=== PATIENT | male | born 1955 | race African-American/Black ===

== ENCOUNTER 2017-07-11 18:19 | Inpatient (IN) | payer OTHER ==
[2017-07-11] MEDS ORDERED: Magnesium 2 GM/NS 0.9% 50 ML 2 GM in Premix Bag 1 BAG IVPB SCH (18:45)
[2017-07-11 19:04] LABS: Modified Allen's Test POSITIVE; Oxyhemoglobin 95.4 % (94.0-97.0); Sodium 138 mmol/L (135-148)
[2017-07-11 19:05] LABS: PIP 16 cmH2O; Pressure Support 7 cmH2O; Spontaneous Rate 43 min; Vent YES
[2017-07-11 19:10] LABS: ALT (SGPT) 13 U/L (8-55); AST (SGOT) 49 U/L (5-34); Alkaline Phosphatase 52 U/L (40-150); Anion Gap 19 mmol/L (10-20); BUN (Urea Nitrogen) 33 mg/dL (8.4-25.7); Bilirubin, Total 3.8 mg/dL (0.2-1.2); CK (CPK) 785 U/L (30-200); Calc. Creatinine Clearance 0 mL/min (70-130); Calcium 9.7 mg/dL (7.8-10.44); Carbon Dioxide 19 mmol/L (23-31); Chloride 104 mmol/L (98-107); Estimated GFR-MDRD 14; Globulin 4.6 g/dL (2.4-3.5); Protein, Total 8.2 g/dL (5.8-8.1)
[2017-07-11 19:15] LABS: Mean Platelet Volume 11.1 fL (7.4-10.4); Red Blood Cell (RBC) Count 5.45 mill/uL (4.70-6.10)
[2017-07-11 19:17] LABS: Troponin I 0.246 ng/mL (< 0.028)
[2017-07-11 19:18] LABS: Band 13 % (5-11); Dohle Bodies SLIGHT; Metamyelocyte 21 % (0-0); Myelocyte 7 % (0-0); Neutrophil 13 % (42-75); Polychromasia SLIGHT = 2-3 cells (100X) (0-2/hpf); Reactive Lymphocytes 9 % (0-10); Toxic Granulation SLIGHT; Vacuoles SLIGHT
[2017-07-11] MEDS ORDERED: Albuterol Sulfate 2.5 mg/3 ml Neb ONE (19:42)
[2017-07-11] MEDS ORDERED: Azithromycin 500 MG in Sodium Chloride 0.9% 250 ML 250 ML IVPB SCH (19:45)
[2017-07-11] MEDS ORDERED: cefTRIAXone\\ROCEPHIN 2 GM in Sodium Chloride 0.9% 100 ML IVPB SCH (19:45)
[2017-07-11] MEDS ORDERED: Lorazepam 2 MG/ML VIAL ONE (20:08)
--- NOTE | 2017-07-11 20:09 | RAD ---
ONE VIEW CHEST: History: Shortness of breath. Dyspnea. Comparison: 07-16-15 FINDINGS: Enlarged cardiac silhouette. The pulmonary vessels are prominent. Interstitial and alveolar infiltrat es predominately in the right hemithorax. No pneumothorax or osseous abnormalities. IMPRESSION: Right lung interstitial and alveolar infiltrates. Pneumonia. Continued surveillance is recommended. POS: [facility]
[2017-07-11] MEDS ORDERED: Succinylcholine Chloride 20 MG/ML 10 ml SYRINGE FS ONE (20:21)
[2017-07-11] MEDS ORDERED: Fentanyl 20 MCG/ML 250 ML ONE (20:41)
[2017-07-11] MEDS ORDERED: Morphine 4 MG/ML VIAL ONE (20:58)
[2017-07-11] MEDS ORDERED: Propofol 1,000 MG/100 ML VIAL IV ONE ×2 (21:05→22:49)
--- NOTE | 2017-07-11 21:32 | RAD ---
CHEST ONE VIEW: Comparison: 07-11-17 at 2:15 p.m. History: Dyspnea. Altered mental status. FINDINGS: Continued worsening opacification of the right hemithorax. Interval placement of an endotracheal and nasogastric tube. Nasogastric tube terminates in the left upper quadrant, side hole is in the distal esophagus. Endotracheal tube is approximately 2.2 cm above the bob. Patchy interstitial infiltrat e in the left perihilar region. No pneumothorax. There are multiple air filled loops of small bowel. Small bowel obstruction cannot be excluded. IMPRESSION: 1. Worsening opacification left hemithorax. 2. Nasogastric tube as above. Side hole of the nasogastric tube is in the distal esophagus. Advanceme nt of the nasal gastric tube is recommended. 3. Air filled loops of small bowel. Small bowel obstruction cannot be excluded. POS: [facility]
--- NOTE | 2017-07-11 21:37 | PDOC.EVN ---
Event Note - Event Note Event Note: [id number] h&p dictated 1. Pneumonia 2. Acute respiratory failure 3. HTN 4. Metabolic acidosis 5. Abnormal cardiac enzymes plan: see orders
[2017-07-11] MEDS ORDERED: Sodium Bicarb 50 MEQ/50 ML Abboject 8.4% SYRINGE IVP SCH (21:45)
[2017-07-11 21:58] LABS: Oxyhemoglobin 93.2 % (94.0-97.0); Sodium 140 mmol/L (135-148)
[2017-07-11 22:01] LABS: Modified Allen's Test POSITIVE; Vent YES
[2017-07-11] MEDS ORDERED: Acetaminophen 650 MG Suppository ONE (22:01)
[2017-07-11 22:02] LABS: Mechanical Tidal Volume 500 ml; Mode SIMV; Pressure Support 10 cmH2O; Spontaneous Rate 21 min
[2017-07-11] MEDS ORDERED: Sodium Chloride 0.9% 1,000 ML IV SCH (22:45)
[2017-07-11] MEDS ORDERED: Sodium Bicarb 50 MEQ/50 ML Abboject 8.4% SYRINGE ONE (22:59)
[2017-07-11] MEDS ORDERED: Ondansetron HCl/PF 4 MG/2 ML Vial IVP PRN (23:07)
[2017-07-11] MEDS ORDERED: Fentanyl 20 MCG/ML 250 ML IVPB SCH (23:19)
[2017-07-11] MEDS ORDERED: Lorazepam 2 MG/ML VIAL SLOW IVP PRN (23:19)
[2017-07-11] MEDS ORDERED: DISCONTINUE PREVIOUS NARCOTIC PAIN MEDICATIONS AND BENZODIAZEPINES FS SCH (23:19)
[2017-07-11] MEDS ORDERED: Morphine 2 mg/2ml in 0.9% NaCl PF SYRINGE IVP PRN (23:30)
[2017-07-11] MEDS ORDERED: Sodium Bicarbonate 75 MEQ in Sodium Chloride 0.45% 1,000 ML IV ONE (23:30)
[2017-07-11 23:42] LABS: Oxyhemoglobin 92.7 % (94.0-97.0); Sodium 143 mmol/L (135-148)
[2017-07-11 23:44] LABS: Modified Allen's Test POSITIVE; Vent YES
[2017-07-11 23:45] LABS: Mechanical Tidal Volume 550 ml; Mode SIMV; PIP 17 cmH2O; Pressure Support 10 cmH2O
[2017-07-11] MEDS: Propofol 1,000 MG/100 ML VIAL IV PRN (23:52)
[2017-07-11 23:54] VITALS: BMI 24.3
[2017-07-12] MEDS: methylPREDNISolone Sod Succ/PF 125 MG/2 ML VIAL IVP SCH ×4 (00:22→16:37)
[2017-07-12] MEDS ORDERED: Metoprolol Tartrate 5 MG/5 ML VIAL IVP PRN (00:46)
[2017-07-12] MEDS ORDERED: Vancomycin HCl 1.25 GM in Sodium Chloride 0.9% 250 ML 250 ML IVPB SCH (01:00)
[2017-07-12] MEDS ORDERED: Acetaminophen 1,000 MG in Premix Bag 1 BAG IVPB SCH (01:00)
[2017-07-12 01:57] LABS: PTT 34.3 SEC (22.9-36.1); Prothrombin Time 15.4 SEC (12.0-14.7)
[2017-07-12] MEDS: Piperacillin/Tazobactam 2.25 GM in Sodium Chloride 0.9% 100 ML IVPB SCH ×3 (02:05→18:28)
[2017-07-12 02:56] LABS: Band 4 % (5-11); Hematocrit 46.2 % (42.0-52.0); Mean Platelet Volume 11.1 fL (7.4-10.4); Metamyelocyte 14 % (0-0); Myelocyte 11 % (0-0); Neutrophil 9 % (42-75); Reactive Lymphocytes 2 % (0-10); Red Blood Cell (RBC) Count 4.67 mill/uL (4.70-6.10); White Blood Cell (WBC) Count 1.4 thou/uL (4.8-10.8)
[2017-07-12 03:51] LABS: Bilirubin Small (Negative); Blood, Urine Large (Negative); Glucose, Urine (Dipstick) Negative (Negative); Ketone, Urine Trace mg/dL (Negative); Nitrite Positive (Negative); Protein, Urine (Dipstick) 100 mg/dL (Neg-Trace); Urobilinogen 0.2 mg/dL (0.2-1.0)
[2017-07-12 03:54] LABS: Bacteria/HPF None Seen HPF (None Seen)
[2017-07-12 04:04] LABS: Oval Fat Bodies/HPF None Seen HPF (None Seen); Renal Epithelial 0-3 HPF (0-3); Sperm/HPF None Seen HPF (None Seen); Transitional Epithelial 0-3 HPF (0-3); Trichomonas/HPF None Seen HPF (None Seen); Yeast-All Forms None Seen HPF (None Seen)
--- NOTE | 2017-07-12 05:38 | CON ---
DATE OF SERVICE: 07/12/2017 SERVICE: Pulmonary Medicine. REASON FOR CONSULTATION: Septic shock. HISTORY OF PRESENT ILLNESS: The patient is a 62-year-old -[place] male. He was in his usual state of health until roughly 2 weeks ago. He started having increasing cough and congestion. Fevers were spiking up to 103 and 104. He did not seek any medical attention until he was essentially so weak , he could not move. He was brought to the emergency department. At that location, he was profoundly hypoxemic. They initiated him on a CPAP, which he quickly failed and he was subsequently intubated. He was tucked into the ICU. Overnight, he had multiple problems. He had a significant hemoptysis/blood- tinged sputum. His blood pressures were extraordinarily labile. He was tachycardic to 150s. Blood pressures were marginal at best. He got multiple boluses of fluid. He did not have a significant response to these things. His blood pressure at one point was a little elevated associated with tachycardia. He got a dose of metoprolol, which dropped his pulse and his blood pressure to a significant degree. He continues to spike fevers overnight requiring cooling blanket. He cannot provide any additional elements of the history right now, but in between doses of propofol, the patient is lucid and follows some commands. PAST MEDICAL HISTORY: Hypertension. PAST SURGICAL HISTORY: Unknown/negative. SOCIAL HISTORY: Drinks 3-5 beers on a daily basis. He smokes tobacco. He has a greater than [id number] history of that. There is no illicit drug use. He has no exposure to chemicals, asbestos, dusts, or tuberculosis so far as were aware. ALLERGIES: No known drug allergies. MEDICATIONS LIST: List of the inpatient medications were reviewed. Multiple of this were made at this time. REVIEW OF SYSTEMS: Cannot be obtained as the patient is currently intubated and under the influence of some sedation with encephalopathy. PHYSICAL EXAMINATION: VITAL SIGNS: Afebrile, T-max 103, pulse 139, blood pressure 80/52, respirations 21, saturation 88% on 100% FIO2 and a PEEP of 10. HEENT: Normocephalic, atraumatic. Sclerae are white, conjunctivae pink. Oral and nasal mucosa is moist without lesions. LUNGS: Rhonchi are present throughout bilateral lung jauregui with crackles, and expiratory wheezing, which are more course. HEART: Tachycardic. Regular. ABDOMEN: Soft, nontender, nondistended. Bowel sounds are positive. MUSCULOSKELETAL: No cyanosis or clubbing. There is no pitting in the bilateral lower extremities. He has got skin tenting, which is mild. GENITOURINARY: Kilgore catheter in place. NEUROLOGIC: Grossly nonfocal. He has been witnessed to move all 4 extremities. His pupils are equal, round, and reactive. He is driving the ventilator very nicely. LABORATORY DATA: WBC 1.4 and down trending dramatically, hemoglobin 15.1, platelets 60,000. Lymphocyte count is currently 60% and is up trending. Metamyelocytes and myelocytes are actually being pushed out into the peripheral blood. Band count is 4%, neutrophil count 9%. INR 1.2, pH 7.23, pCO2 of 52, pO2 of 81 on 100% FIO2 with a PEEP of 5 at the time. Creatinine 4.98, potassium 3.3. Total bilirubin 3.8. CK 785, troponin 0.246, BNP was 889. Urinalysis is positive for nitrites and leukocyte esterase, but there is not many white blood cells. Influenza A and B is unremarkable. IMAGING: Chest x-ray demonstrates multiple infiltrates in the bilateral lung jauregui, but more predominantly displayed on the right. There is a right-sided pleural effusion. Endotracheal tube is in decent position roughly 4 cm above the level of bob. There is an IJ central venous catheter in decent position. ASSESSMENT: 1. Acute hypoxic respiratory failure. 2. Septic shock. 3. Community-acquired pneumonia. 4. Non-ST elevation myocardial infarction. 5. Acute kidney injury. PLAN: We will put a central line and initiates some Levophed. I will transduce the CVP to see if the patient may benefit from additional fluid. Echocardiogram will be ordered as well as CT of the chest, abdomen, and pelvis. I am going to add an antibiotic to cover atypical organisms. Peripheral blood smear will be obtained. My suspicion is this is an extreme left shift because of his severe infection that were not absolutely certain of that yet. CRITICAL CARE TIME: 110 minutes. [facility]
[2017-07-12 05:39] LABS: Anion Gap 17 mmol/L (10-20); BUN (Urea Nitrogen) 45 mg/dL (8.4-25.7); Calc. Creatinine Clearance 17 mL/min (70-130); Calcium 7.8 mg/dL (7.8-10.44); Carbon Dioxide 17 mmol/L (23-31); Chloride 110 mmol/L (98-107); Estimated GFR-MDRD 13; Magnesium 1.8 mg/dL (1.6-2.6); Phosphorus 6.2 mg/dL (2.3-4.7)
--- NOTE | 2017-07-12 05:51 | HP ---
DATE OF ADMISSION: 07/11/2017 CHIEF COMPLAINT: Dyspnea. HISTORY OF PRESENT ILLNESS: Patient is a 62-year-old male with past medical history of hypertension, diabetes type 2, hyperlipidemia, chronic kidney disease, unknown stage. Now came to the ER complain ing of dyspnea. Patient started having dyspnea last week. Dyspnea started with some cough. Cough as sociated with some sputum production, chest congestion also. Sputum dark brown in color. Patient barrett d an episode of nausea and vomiting also today and an episode of diarrhea also. Patient's dyspnea go t worse today, so patient came to the ER. Upon ER arrival, the patient was breathing up to 40 times, so patient was placed on the BiPAP. The patient is currently having severe dyspnea, so not able to get much history. Entire history obtained from the patient's also. PAST MEDICAL HISTORY: As per HPI. PAST SURGICAL HISTORY: None. SOCIAL HISTORY: Positive for smoking, positive for alcohol, denies any drugs. FAMILY HISTORY: Reviewed. REVIEW OF SYSTEMS: Unavailable from the patient and obtained from the patient's . Positive for dyspnea, positive for cough, positive for sputum production, positive for nausea, vomiting, and diarr hea. All other review of systems are not available from the patient. PHYSICAL EXAMINATION: CONSTITUTIONAL/VITAL SIGNS: At the time of H&P performed, blood pressure is 114/58, pulse ox is 94% on BiPAP, respiratory rate 40s. GENERAL: The patient appears tired. HEENT: Anterior nares patent. Nose normal. NECK: Positive for sternocleidomastoid muscle usage seen. Positive for accessory muscle usage seen. Now was placed on BiPAP. CARDIOVASCULAR SYSTEM: S1, S2 present, tachycardic. No murmurs, no rubs, no gallops. Regular. RESPIRATORY SYSTEM: Positive for rhonchi. Positive for crackles. Positive for accessory muscle usa ge seen. Positive for tachypnea. GASTROINTESTINAL: Abdomen is soft, nontender, no guarding, no organomegaly, no masses felt. Distend ed. MUSCULOSKELETAL: No edema. CRANIAL NERVE SYSTEM: Awake, follows commands. Speech is clear, but dyspneic, but tachypnea percent . PSYCHIATRIC: Calm. INTEGUMENTARY: No rashes seen. LABORATORY DATA: At the time of H&P performed, white count 4, hemoglobin 17.3, platelet count is 83. ABG showed pH 7.35, bicarbonate 15 pCO2 of 27, pO2 of 101. BMP showed sodium 139, potassium 3.3, c hloride 104, CO2 of 19, BUN 33, creatinine 4.98. Chest x-ray showed right lung interstitial and alve olar infiltrates, pneumonia present. ASSESSMENT AND PLAN: The patient is 62-year-old male, 1. Pneumonia. Plan to start patient on broad spectrum antibiotics. Plan to consult Pulmonary to ev aluate the patient and will follow the patient. 2. Acute respiratory failure, ED physician notified the analytical tech already. Continue vent. The eusebia nolasco is currently getting intubated. We will monitor respiratory status closely. 3. Acute kidney injury. The patient's baseline creatinine was around 1.15 in 2016. Patient is supp osed to see Dr. Argueta as an outpatient. We will go ahead and consult, Dr. Argueta. We will monitor by anuel kyle closely. We will go ahead and place Kilgore catheter also. 4. Metabolic acidosis with some respiratory compensation. Plan to give 1 amp of bicarbonate push. We will start patient on bicarbonate drip also. 5. Abnormal cardiac enzymes plus elevated BNP. Possible secondary to demand ischemia. We will go a head and check cardiac echo. We will consult Cardiology to evaluate the patient. The patient will g o ahead and admit patient to ICU. Case was discussed in detail with the patient's at the bedside and answered all her questions. Patient is FULL CODE.
[2017-07-12 05:59] LABS: Band 9 % (5-11); Hematocrit 45.8 % (42.0-52.0); Mean Platelet Volume 9.7 fL (7.4-10.4); Metamyelocyte 24 % (0-0); Myelocyte 8 % (0-0); Neutrophil 3 % (42-75); Red Blood Cell (RBC) Count 4.61 mill/uL (4.70-6.10); White Blood Cell (WBC) Count 1.9 thou/uL (4.8-10.8)
[2017-07-12] MEDS ORDERED: Piperacillin/Tazobactam 2.25 GM in Sodium Chloride 0.9% 100 ML IVPB SCH (06:00)
[2017-07-12] MEDS ORDERED: Acetaminophen 650 MG/20.3 ML UDCUP PER TUBE PRN (06:58)
[2017-07-12 07:44] LABS: Oxyhemoglobin 92.5 % (94.0-97.0); Sodium 141 mmol/L (135-148)
[2017-07-12 07:45] LABS: Mode AC+PCV; Modified Allen's Test POSITIVE; PIP 9 cmH2O; Vent YES
--- NOTE | 2017-07-12 08:04 | RAD ---
PORTABLE SUPINE FRONTAL CHEST RADIOGRAPH: Date: 07/12/17 COMPARISON: 07/11/17. HISTORY: Evaluate chest following central line placement. FINDINGS: Endotracheal tube and nasogastric tube in place. Recommend advancing the nasogastric tube as it just slightly extends into the left upper quadrant of the abdomen. There is a left-sided vascular catheter present. Supine imaging limits assessment for pneumothorax. There is extensive dense multifocal consolidative change seen throughout the right lung with an associated right pleural effusion and/or pleural thicke amy, stable. There is also nonspecific rounded air space opacity in the left perihilar region. Opacities have significantly worsened since the 07/11/17 examination. IMPRESSION: Lines and tubes as above. Worsening left perihilar aeration and worsening aeration throughout the rig ht lung with extensive nonspecific multifocal consolidation. POS: [facility]
[2017-07-12] MEDS: Heparin 5,000 UNITS/ML VIAL SC SCH ×3 (08:52→23:01)
[2017-07-12] MEDS ORDERED: Enoxaparin Sodium 30 MG/0.3 ML SYRINGE SC SCH (09:00)
[2017-07-12] MEDS ORDERED: FLU VACC QS2017-18 36 mo. & older 0.5 ML SYRINGE IM ONE (09:00)
[2017-07-12] MEDS ORDERED: Enoxaparin Sodium 40 MG/0.4 ML SYRINGE SC SCH (09:00)
--- NOTE | 2017-07-12 10:04 | CON ---
DATE OF CONSULTATION: 07/12/2017 HISTORY OF PRESENT ILLNESS: Mr. Tsai is a 62-year-old black male who was admitted for pneumonia/ac beny respiratory failure. Patient initially presented with shortness of breath. Chest x-ray suggeste d that the patient had pneumonia. He was subsequently intubated and placed on ventilator support. W e are now being consulted for his acute kidney injury. Previously, the patient was noted to have an elevated creatinine and was supposed to follow up at the renal clinic, but he declined at that time. REVIEW OF SYSTEMS: Not obtainable since the patient is intubated on ventilatory support. MEDICATIONS: Of 07/12/2017, DuoNeb q.4 hours p.r.n., he is on a fentanyl drip, Heparin 5000 units zazueta bcutaneous b.i.d., Levaquin 500 mg q.48 hours, Solu-Medrol 60 mg IV q.6 hours, Levophed drip, Zosyn 2 .25 grams IV q.8 hours, sodium bicarbonate drip, status post vancomycin with supression treatment. PAST MEDICAL HISTORY: The patient has a history of hypertension, recently diagnosed with pneumonia, recently diagnosed with acute respiratory failure and intubated. PAST SURGICAL HISTORY: No significant surgeries. SOCIAL HISTORY: The patient still smokes about 1/2-1 pack a day for the last 30-40 years. Alcohol - beer about 5 drinks per day. , no children. He is a electric truck driver. Education, high school. No IV drug abuse. Denies any blood transfusion. ALLERGIES: No known drug allergies. TRAUMA: None. IMMUNIZATIONS: Unknown. HOSPITALIZATIONS: Please see past medical history. FAMILY HISTORY: Noncontributory. PHYSICAL EXAMINATION: VITAL SIGNS: Blood pressure 92/64, heart rate 120, respiratory rate 15, pulse ox 92%. GENERAL: Sedated and intubated on ventilator support. SKIN: Adequate turgor. HEENT: Pinkish conjunctivae, anicteric sclerae. NECK: No neck mass, no carotid bruits, no JVD. CHEST: No deformities. LUNGS: Clear breath sounds. HEART: Normal sinus rhythm. No murmur, no gallops or rubs. ABDOMEN: Globular, soft, nontender, no masses. EXTREMITIES: No edema. NEUROLOGIC: Sedated and intubated on ventilator support. LABORATORY DATA: Of 07/12/2017, white count 1.9, hemoglobin 14.9. Sodium 141, potassium 3.4, chlori de 110, carbon dioxide 17, BUN 45, creatinine 5.52, GFR 13 mL per minute, magnesium 1.8, phosphorus 6 .2, BNP is 889, troponin I 0.246. On 07/11/2017, creatinine noted at 4.98. On 08/19/2015, creatinin e 1.15. Urinalysis shows protein and 0-3 coarse granular casts. X-RAY FINDINGS: Chest x-ray showed increased multifocal infiltrates. ASSESSMENT AND PLAN: 1. Acute kidney injury - consider hemodynamically mediated renal dysfunction. However, the finding of a granular cast suggest there may be a superimposed acute tubular necrosis. Management is essenti ally going to be supportive, continue to optimize hemodynamics. No indication for any emergent hemod ialysis at the present time with this patient. I did discuss the case at length with the patient's w mario. 2. Pneumonia, on empiric IV antibiotics. On Levaquin and vancomycin as well on Zosyn. 3. Acute respiratory failure secondary to underlying pneumonia. Overall, prognosis remains guarded. A renal ultrasound will be ordered to rule out any obstruction.
[2017-07-12 10:19] LABS: Fibrinogen 627 mg/dL (253-463)
[2017-07-12 10:20] LABS: PTT 40.1 SEC (22.9-36.1); Prothrombin Time 17.3 SEC (12.0-14.7)
[2017-07-12] MEDS ORDERED: Sodium Bicarbonate 150 MEQ in Dextrose 5% in Water 1,000 ML IV SCH ×2 (12:30)
--- NOTE | 2017-07-12 13:11 | ULT ---
RENAL ULTRASOUND: Date: 07-12-17 Comparison: None. History: Renal failure. Technique: Multiplanar grayscale sonographic imaging of the kidneys and urinary bladder obtained. FINDINGS: Right kidney measures 10.2 x 5.2 x 4.5 cm and left kidney measures 11.7 x 5.9 x 5.[address] is seen within the urinary bladder. There is no renal mass, hydronephrosis, or renal stone seen o n either side. IMPRESSION: Unremarkable renal ultrasound. POS: [facility]
--- NOTE | 2017-07-12 13:32 | PDOC.PN ---
- Subjective Encounter Start Date: 07/12/17 Encounter Start Time: 09:30 -: non-verbal, old records requested/rev PT seen and examined, chart reviewed in its entirety. This is my first visit with this patient sedated on vent, barely arousable. on 20mcg levophed at the time of my visit, i understand now he is maxed out on levo and vaso. Pt admitted with septic shock with elevated lactate, KAILASH, EF10%. Echo this morning with evidence of blood coagulating intracrdiac. DIC panel ordered stat and returning postiive for DIC. paltelets less than 100K, heparin held Pt febrile to 101.4 at bedside updated to condition. Dr Diaz following, Dr Hanna reviewing the echo ROs not able to be performed due to intubated status - Objective Resuscitation Status: FULL MAR Reviewed: Yes Vital Signs & Weight: Vital Signs (12 hours) Temp Pulse Pulse Resp BP BP Pulse Ox 07/12/17 12:00 98.6 F 18 07/12/17 10:33 119 H 84/59 L 07/12/17 10:31 116 H 17 94 L 07/12/17 10:00 16 07/12/17 08:00 14 07/12/17 07:24 117 H 96/66 07/12/17 07:21 120 H 15 07/12/17 07:10 101.4 F H 118 H 15 07/12/17 06:00 99.1 F 19 07/12/17 05:00 100.4 F H 07/12/17 04:55 101.4 F H 126 H 23 H 95/75 07/12/17 04:00 102.1 F H 87 L 07/12/17 03:00 103.4 F H 07/12/17 02:58 131 H 07/12/17 02:44 136 H 07/12/17 02:35 139 H 22 H 85 L 07/12/17 02:00 104.8 F H Weight Weight 194 lb 7.163 oz Most Recent Monitor Data Heart Rate from ECG 137 NIBP 85/35 NIBP BP-Mean 88 Respiration from ECG 21 SpO2 92 I&O: 07/11/17 07/12/17 07/13/17 06:59 06:59 06:59 Intake Total 1525.0 Output Total 165 0 Balance 1360.0 0 Result Diagrams: 07/12/17 09:52 07/12/17 04:14 Radiology Reviewed by me: Yes EKG Reviewed by me: Yes Phys Exam - Physical Examination acute ill appearing, sedated and intubate donthe Vent HEENT: PERRLA, moist MMs, sclera anicteric, oral pharynx no lesions Neck: no nodes, supple, full ROM coarse bilateral BS tachy. regular, no discernible murmurs Gastrointestinal: soft, no distention, positive bowel sounds Musculoskeletal: pulses present, edema present unable to assess. opens eyes to verbal stimuli Lymphatic: no nodes Deviation from normal: knees, LE cool. + edema Dx/Plan (1) Septic shock Code(s): A41.9 - SEPSIS, UNSPECIFIED ORGANISM; R65.21 - SEVERE SEPSIS WITH SEPTIC SHOCK Status: Acute (2) Acute systolic CHF (congestive heart failure), NYHA class 4 Code(s): I50.21 - ACUTE SYSTOLIC (CONGESTIVE) HEART FAILURE Status: Acute (3) KAILASH (acute kidney injury) Code(s): N17.9 - ACUTE KIDNEY FAILURE, UNSPECIFIED Status: Acute (4) DIC (disseminated intravascular coagulation) Code(s): D65 - DISSEMINATED INTRAVASCULAR COAGULATION Status: Acute (5) CAP (community acquired pneumonia) Code(s): J18.9 - PNEUMONIA, UNSPECIFIED ORGANISM Status: Acute Qualifiers: Laterality: unspecified laterality Qualified Code(s): J18.9 - Pneumonia, unspecified organism (6) Acute hypoxemic respiratory failure Code(s): J96.01 - ACUTE RESPIRATORY FAILURE WITH HYPOXIA Status: Acute - Plan cont current plan of care, plan discussed w/ family, continue antibiotics, respiratory therapy * .
[2017-07-12 13:41] LABS: Oxyhemoglobin 86.9 % (94.0-97.0); Sodium 141 mmol/L (135-148)
[2017-07-12 13:42] LABS: Modified Allen's Test POSITIVE; Vent YES
[2017-07-12 13:44] LABS: I Time 1.15 sec; Mode AC+PCV; PIP 9 cmH2O
[2017-07-12] MEDS ORDERED: Phenylephrine 10 MG/NS 250 ML 250 ML ONE (14:04)
[2017-07-12] MEDS ORDERED: Phenylephrine 10 MG/NS 250 ML 250 ML IVPB SCH (14:45)
[2017-07-12 14:47] LABS: Troponin I 0.588 ng/mL (< 0.028)
--- NOTE | 2017-07-12 14:54 | OP ---
DATE OF SERVICE: 07/12/2017 SERVICE: Pulmonary Medicine. PROCEDURE PERFORMED: Left-sided 8.5 Montenegrin triple lumen internal jugular central venous catheter alfreda cement under ultrasound guidance. CONSENT: Risks and benefits of this procedure were explained to the patient's . All questions w ere answered and alternative options explained. STAFF PHYSICIAN: Benoit Diaz M.D. PREOPERATIVE DIAGNOSIS: Septic shock. POSTOPERATIVE DIAGNOSIS: Septic shock. DESCRIPTION OF PROCEDURE: Vital sign monitoring was accomplished by noninvasive hemodynamic monitori ng, pulse oximetry, and telemetry. DESCRIPTION OF PROCEDURE: A timeout was performed and the patient was positively identified by name and date of . The procedure site was marked. The patient was placed in the supine position, th e left neck was prepped and draped in sterile fashion. The course of the IJ vein was mapped with ult rasound. The overlying skin was anesthetized with 1% lidocaine. The cannulation needle was placed i n the IJ under direct ultrasound observation with return of dark red, non nonpulsatile blood on the f irst attempt. A J-shaped guidewire was threaded through the cannulation needle without difficulty. A small incision was made. The dilator and an 8.5 Montenegrin triple-lumen central venous catheter was se rially threaded over the guidewire. The catheter was sutured to the skin at 18 cm with 3-0 silk sutu res x4. All ports withdrew and flushed without difficulty. A sterile dressing was applied and the p rocedure was terminated. Post-procedure chest x-ray demonstrated adequate location for the tip of th e catheter. ESTIMATED BLOOD LOSS: 3 mL. COMPLICATIONS: None.
[2017-07-12] MEDS: Propofol 1,000 MG/100 ML VIAL IV PRN (16:37)
--- NOTE | 2017-07-12 16:50 | CON ---
DATE OF CONSULTATION: 07/12/2017 HISTORY OF PRESENT ILLNESS: This patient is a 62-year-old gentleman, who unfortunately presented with acute respiratory failure and was emergently intubated. The patient has no known cardiac history. The patient has a history of hypertension. He was apparently in his usual state of health until 2 weeks ago, he developed progressive dyspnea and weakness. He eventually presented to the emergency room in severe distress. He was emergently intubated and transferred to the ICU. The patient is unable to give a history. The patient's reports that he did report having exertional chest discomfort. Apparently this was noted recently at work that he would develop chest pain with exertion. The patient has multiple cardiac risk factors including hypertension, family history of coronary artery disease, and tobacco abuse. PAST MEDICAL HISTORY: Significant for hypertension. PAST SURGICAL HISTORY: None. SOCIAL HISTORY: He smokes 1 pack per day. He consumes excessive amounts of alcohol. ALLERGIES: None. MEDICATIONS: None. REVIEW OF SYSTEMS: Not obtainable. PHYSICAL EXAMINATION: VITAL SIGNS: Intubated gentleman, who is hypotensive with a blood pressure of 73/60, heart rate is 121. NECK: Full. LUNGS: Coarse breath sounds throughout both lung jauregui. HEART: Regular rate and rhythm, normal S1 and S2 with distant heart sounds. ABDOMEN: Nondistended. EXTREMITIES: Showed trace edema. LABORATORY DATA: White blood cell count 1.1, hemoglobin 14.9, hematocrit 45.8, platelets are 94. Sodium is 141, potassium 3.4, chloride 110, bicarbonate 17, BUN 45, creatinine is 5.5. BNP is 889, troponin 0.24. EKG revealed multifocal atrial tachycardia with no acute ST-T wave changes. Echocardiogram revealed severe decrease in left systolic function with estimated ejection fraction of 20 % to 25%, global hypokinesis. IMPRESSION: 1. Septic shock. 2. Severe cardiomyopathy. 3. Acute renal failure. 4. Multifocal atrial tachycardia. 5. Hemoptysis. 6. Tobacco abuse. 7. Ethanol abuse. This unfortunate gentleman presents with septic shock and developed a severe cardiomyopathy. He is hypotensive on Levophed. From a cardiac standpoint, I would continue pressure support. His overall prognosis is quite poor. I have discussed with the patient's in detail. We will follow this patient with you. Critical care time: 40 minutes. [facility]
[2017-07-12] MEDS ORDERED: Sodium Bicarb 50 MEQ/50 ML Abboject 8.4% SYRINGE IVP SCH (18:00)
[2017-07-12] MEDS ORDERED: EPINEPHrine 1 MG, Admixture Fee 1 EACH in Dextrose 5% in Water 250 ML IVPB SCH ×3 (18:00)
[2017-07-12] MEDS ORDERED: Calcium Chloride 1 GM/10 ML Abboject SYRINGE IVP SCH (19:15)
[2017-07-12] MEDS ORDERED: EPINEPHrine 4 MG in Dextrose 5% in Water 250 ML IV SCH ×2 (19:45)
[2017-07-13 02:05] VITALS: TEMP 104.1
[2017-07-13 02:09] VITALS: BP 30/10
--- NOTE | 2017-07-13 07:58 | DS ---
DATE OF ADMISSION: 07/11/2017 DATE OF : 07/12/2017 CAUSE OF : 1. Cardiac arrest, immediate. 2. Acute hypoxic respiratory failure 24 hours. 3. Community-acquired pneumonia with severe sepsis 24 hours. 4. Multiorgan failure including lactic acidosis, acute kidney injury, 24 hours. 5. Acute on chronic systolic congestive heart failure. Acute onset 24 hours, chronic onset unknown. CONSULTATIONS: 1. Dr. Diaz, Pulmonary Critical Care. 2. Dr. Hanna, Cardiology. 3. Dr. Elan Argueta with Nephrology. HISTORY: Mr. Tsai is a 62-year-old gentleman presented with respiratory failure, sepsis and pneumo jose manuel to the ER. He was subsequently intubated and transferred to the unit. He was hypotensive, tachy cardic, and febrile. We were called for admission. HOSPITAL COURSE: The patient was seen and examined and admitted. He was started on Levophed with va sopressin as needed. He received broad spectrum antibiotics, creatinine on admission was just under 5. Through the day of 07/12/2017, the patient had worsening renal function, lactic acid, despite fluid r esuscitation, continued to increase up to 6. He was maxed out on Levophed, vasopressin was added and maxed out, [place]-Synephrine was added and steadily increased. Echocardiogram the morning of 07/12/2017 showed an ejection fraction of 10%. More concerning was the fact that the blood in his left ventricle seemed to be coagulating as the psychology technician was ta carlos a the study. DIC panel came back positive and anticoagulants were held. As the patient worsened through the day, the family was updated. At 2099 they opted to withdraw care , the patient at 2122 from cardiac arrest. DISPOSITION: The patient was released to [facility]. Autopsy was not performed. The home arrived at 2255 and the patient was transferred to the home at 2310 with pap erwork.
--- NOTE | 2017-07-13 08:04 | EKG ---
Test Reason : TACHY Blood Pressure : / mmHG Vent. Rate : 154 BPM Atrial Rate : 154 BPM P-R Int : 172 ms QRS Dur : 094 ms QT Int : 220 ms P-R-T Axes : 060 062 069 degrees QTc Int : 352 ms Sinus tachycardia vs. SVT. Favor SVT rhythm, possibly A. flutter with 2:[address] rip, 3 page. T wave abnormality, consider lateral ischemia Abnormal ECG When compared with ECG of 16-JUL-2015 01:18, Vent. rate has increased BY 75 BPM Questionable change in QRS axis Nonspecific T wave abnormality now evident in Inferior leads Inverted T waves have replaced nonspecific T wave abnormality in Lateral leads Confirmed by OVI PHAN ([id number]) on 07/13/2017 8:04:24 AM Referred By: VINEET Confirmed By:OVI PHAN
[2017-07-14] MEDS ORDERED: Vancomycin HCl 1 GM in Premix Bag 1 BAG IVPB SCH (01:00)
--- NOTE | 2017-07-16 13:38 | EKG ---
Test Reason : SOB Blood Pressure : / mmHG Vent. Rate : 127 BPM Atrial Rate : 127 BPM P-R Int : 162 ms QRS Dur : 088 ms QT Int : 338 ms P-R-T Axes : 068 039 096 degrees QTc Int : 491 ms Sinus tachycardia with Premature atrial complexes / Multifocal atrial tachycardia Biatrial enlargement T wave abnormality, consider lateral ischemia Abnormal ECG Confirmed by REMI DINH, KATHY Sorensen ([id number]), newspaper editor OPAL SANTACRUZ ([id number]) on 07/16/2017 1:37:45 PM Referred By: Confirmed By:KATHY KHALIL MD
== END 2017-07-12 21:23 | disposition expired | DRG 871 ==
LOC: ERS 18:19 → CCU 21:00
PROVIDERS: ADMIT Internal Medicine; ATTEND Internal Medicine
PROC: 0BH17EZ Insertion of Endotracheal Airway into Trachea, Via Natural or Artificial Opening (ICD-10-PCS; principal; 2017-07-11)
PROC: 5A1945Z Respiratory Ventilation, 24-96 Consecutive Hours (ICD-10-PCS; 2017-07-11)
DX: A41.9 Sepsis, unspecified organism (principal); R65.21 Severe sepsis with septic shock; J96.01 Acute respiratory failure with hypoxia; D65 Disseminated intravascular coagulation [defibrination syndrome]; I50.23 Acute on chronic systolic (congestive) heart failure; J18.9 Pneumonia, unspecified organism; I11.0 Hypertensive heart disease with heart failure; N17.9 Acute kidney failure, unspecified; E87.2 Acidosis; I24.8 Other forms of acute ischemic heart disease; I42.9 Cardiomyopathy, unspecified; R04.2 Hemoptysis; F17.210 Nicotine dependence, cigarettes, uncomplicated; I46.9 Cardiac arrest, cause unspecified; F10.10 Alcohol abuse, uncomplicated
CPT/HCPCS: 31500; 36415; 36430; 51702; 71010; 76770; 80048; 80053; 81001; 82553; 82805; 83605; 83735; 83880; 84100; 84443; 84484; 85025; 85049; 85060; 85300; 85362; 85379; 85384; 85610; 85730; 86850; 86900; 86901; 87040; 87077; 87086; 87149; 87186; 93005; 93010; 93306; 94002; 94003; 94640; 94660; 96361; 96365; 96366; 96367; 96375; 96376; A4216; J0131; J0171; J0456; J0696; J1644; J1956; J2060; J2270; J2543; J2704; J2930; J3010; J3370; J3475; J7050; J7070; J7611; J7620; P9035